=== PATIENT | female | born 1960 ===

== ENCOUNTER 2021-06-10 07:49 | Emergency (ER) | payer SELFPAY ==
[2021-06-10 09:04] LABS: Bilirubin,Urine NEG (Negative); Blood,Urine NEG (Negative); Color,Urine Yellow (Yellow); Protein,Urine <15 mg/dL mg/dL (Negative); Urobilinogen,Urine < 2.0 mg/dL (<2.0)
[2021-06-10] MEDS ORDERED: MORPHINE 4 MG/1 ML INJ IV ONE (09:08)
[2021-06-10] MEDS ORDERED: ONDANSETRON 4 MG/2 ML INJ IV ONE (09:08)
[2021-06-10] MEDS ORDERED: SODIUM CHLORIDE 0.9% 1000 ML 1,000 ML IV ONE (09:08)
--- NOTE | 2021-06-10 09:09 | Emergency Department Report ---
ED Abdominal Pain HPI - General Chief Complaint: Abdominal Pain Stated Complaint: abd pain Time Seen by Provider: 06/10/21 08:52 Source: patient Mode of arrival: Ambulatory Limitations: No Limitations - History of Present Illness Initial Comments: 61-year-old female with a past medical history of diabetes, hypertension, hyperlipidemia and peripheral neuropathy presents to the ER today with complaints of periumbilical/epigastric pain radiating around to her right back. Patient states that this pain has been ongoing for the past 2 weeks and getting worse. She describes his pain as a "spasmic pain. She denies any associated nausea, vomiting or diarrhea. Her last bowel movement was this morning and normal. She denies any UTI or abnormal vaginal symptoms. She denies any fever or chills. She denies any chest pain or shortness of breath. She is status post appendectomy. MD Complaint: abdominal pain -: week(s) (2) Severity scale (0 -10): 6 - Related Data Previous Rx's Medication Instructions Recorded Last Taken Type HYDROcodone/APAP 5-325 [Ramey 1 each PO Q4HR PRN #12 tablet 06/10/21 Unknown Rx 5/325] Allergies Allergy/AdvReac Type Severity Reaction Status Date / Time No Known Allergies Allergy Unverified 06/10/21 07:55 ED Review of Systems ROS: Stated complaint: abd pain Other details as noted in HPI Comment: All other systems reviewed and negative Constitutional: denies: chills, fever Eyes: denies: eye pain, eye discharge, vision change ENT: denies: ear pain, throat pain Respiratory: denies: cough, shortness of breath, wheezing Cardiovascular: denies: chest pain, palpitations, dyspnea on exertion, edema, syncope, paroxysmal nocturnal dyspnea, other Gastrointestinal: abdominal pain. denies: nausea, vomiting, diarrhea, constipation, hematemesis, melena, hematochezia Genitourinary: denies: urgency, dysuria, frequency, hematuria, discharge, abnormal menses, dyspareunia Musculoskeletal: denies: back pain, joint swelling, arthralgia Skin: denies: rash, lesions Neurological: denies: headache, weakness, numbness, paresthesias, confusion, abn ormal gait, vertigo Psychiatric: denies: anxiety, depression, auditory hallucinations, visual hallucinations, homicidal thoughts, suicidal thoughts Hematological/Lymphatic: denies: easy bleeding, easy bruising ED Past Medical Hx - Medications Home Medications: Home Medications Medication Instructions Recorded Confirmed Last Taken Type HYDROcodone/APAP 5-325 [Ramey 1 each PO Q4HR PRN #12 tablet 06/10/21 Unknown Rx 5/325] ED Physical Exam - General Limitations: No Limitations - Head Head exam: Present: atraumatic, normocephalic, normal inspection - Eye Eye exam: Present: normal appearance, PERRL, EOMI Pupils: Present: normal accommodation - ENT ENT exam: Present: normal exam, mucous membranes moist, TM's normal bilaterally - Neck Neck exam: Present: normal inspection, full ROM - Respiratory Respiratory exam: Present: normal lung sounds bilaterally. Absent: respiratory distress, wheezes, rales, rhonchi - Cardiovascular Cardiovascular Exam: Present: regular rate, normal rhythm, normal heart sounds - GI/Abdominal GI/Abdominal exam: Present: soft, distended, tenderness (Moderate epigastric and right upper quadrant tenderness with some mild guarding.), guarding. Absent: rebound, rigid - Back Exam Back exam: Present: normal inspection, full ROM, CVA tenderness (R) - Neurological Exam Neurological exam: Present: alert, oriented X3, CN II-XII intact, normal gait - Psychiatric Psychiatric exam: Present: normal affect, normal mood - Skin Skin exam: Present: intact ED Course Vital Signs 06/10/21 06/10/21 07:51 12:38 Temperature 98.4 F 97.5 F L Pulse Rate 77 64 Respiratory 18 16 Rate Blood Pressure 141/84 126/85 [Right] O2 Sat by Pulse 97 98 Oximetry ED Medical Decision Making - Lab Data Result diagrams: 06/10/21 09:14 06/10/21 09:14 - Radiology Data Radiology results: report reviewed Patient: CALISTA PEDERSON MR#: [id number] : 1960 Acct:[id number] Age/Sex: 61 / F ADM Date: 06/10/21 Loc: ED Attending Dr: Ordering Physician: RUSSELL ELLIS Date of Service: 06/10/21 Procedure(s): CT abdomen pelvis w con Accession Number(s): [id number] cc: RUSSELL ELLIS CT ABDOMEN AND PELVIS WITH CONTRAST INDICATION / CLINICAL INFORMATION: Omni 300 100cc. Upper abd pain into right back. TECHNIQUE: Axial CT images were obtained through the abdomen and pelvis after I V contrast. All CT scans at this location are performed using CT dose reduction for ALARA by means of automated exposure control. COMPARISON: None available. FINDINGS: LOWER CHEST: No significant abnormality. LIVER: No significant abnormality. GALLBLADDER: Possible gallstones or gallbladder sludge in the gallbladder neck. No acute abnormality. PANCREAS: No significant abnormality. SPLEEN: No significant abnormality. ADRENALS: No significant abnormality. RIGHT KIDNEY / URETER: No significant abnormality. LEFT KIDNEY / URETER: No significant abnormality. STOMACH / SMALL BOWEL: No significant abnormality. COLON: No significant abnormality. APPENDIX: Nonvisualized PERITONEUM: No free fluid, free air or organized collection. LYMPH NODES: No significant adenopathy. AORTA / ARTERIES/ VEINS: No significant abnormality. URINARY BLADDER: No significant abnormality. REPRODUCTIVE ORGANS: 4 cm fibroid within the left aspect of the uterine fundus. ADDITIONAL FINDINGS: None. SKELETAL SYSTEM: No significant abnormality. IMPRESSION: 1. No acute abnormality. 2. Possible gallbladder sludge without acute bladder abnormality. 3. 4 cm fibroid within the uterine fundus. Signer Name: Nikolas Lima MD Signed: 06/10/2021 10:39 AM Workstation Name: [id number] Transcribed By: SB Dictated By: NIKOLAS LIMA MD Electronically Authenticated By: NIKOLAS LIMA MD Signed Date/Time: 06/10/21 1039 DD/ 1036 TD/TT: Patient: CALISTA PEDERSON MR#: [id number] : 1960 Acct:[id number] Age/Sex: 61 / F ADM Date: 06/10/21 Loc: ED Attending Dr: Ordering Physician: RUSSELL ELLIS Date of Service: 06/10/21 Procedure(s): US abdomen limited Accession Number(s): [id number] cc: RUSSELL ELLIS ULTRASOUND ABDOMEN, LIMITED (RIGHT UPPER QUADRANT) INDICATION / CLINICAL INFORMATION: Right UQ pain. COMPARISON: None available. FINDINGS: PANCREAS: Visualized portion shows no significant abnormality. LIVER: There is increased echogenicity of the liver without focal lesion. Upper limits of normal liver size at 15.3 cm. PORTABLE VEIN: Normal hepatopedal flow. GALLBLADDER: Cholelithiasis. BILE DUCTS: No significant abnormality. Common bile duct measures 2 mm. FREE FLUID: None. ADDITIONAL FINDINGS: None. IMPRESSION: 1. Cholelithiasis without cholecystitis. 2. Hepatic steatosis. Signer Name: Amari Tang DO Signed: 06/10/2021 11:40 AM Workstation Name: [id number] Transcribed By: CHI Dictated By: AMARI TANG DO Electronically Authenticated By: AMARI TANG DO Signed Date/Time: 06/10/21 1140 DD/ 1139 TD/TT: - Medical Decision Making Patient reports feeling better after meds and IV fluids. She is currently not in any significant distress. She is not toxic or ill-appearing. She is neurologically intact with a normal gait. Labs reviewed--CBC and CMP unremarkable. Troponin normal. Lipase is normal. Urinalysis normal. CT abdomen pelvis with IV contrast showed possible gallbladder sludge and uterine fibroids. Gallbladder ultrasound shows cholelithiasis without cholecystitis. Discussed all results with patient. Discussed suspected diagnosis with patient. At this time there is no indication for surgical consult or admission to the hospital. Patient will be given referral information to general surgery for further outpatient evaluation and treatment of her gallstones. Food choices that impacted gallbladder were discussed with patient and her daughter. She will also be given gallbladder eating plan. Worsening signs and symptoms discussed with both patient and daughter, and they understand that if these symptoms develop to bring patient back immediately to the ER. Patient and daughter expressed understanding of all instructions and agree with plan. Patient was stable at time of discharge. Critical care attestation.: If time is entered above; I have spent that time in minutes in the direct care of this critically ill patient, excluding procedure time. ED Disposition Clinical Impression: Cholelithiasis Disposition: 01 HOME / SELF CARE / HOMELESS Is pt being admited?: No Does the pt Need Aspirin: No Condition: Stable Instructions: Cholelithiasis, [id number], Gallbladder Eating Plan, Abdominal Pain (ED) Additional Instructions: Take the pain medication as prescribed and as needed to help with any pain relief. I recommend that you follow the gallbladder eating plan to help with better food choices. I do recommend that you follow-up with the general surgeon listed on your discharge instructions for further evaluation and discuss an elective outpatient removal of your gallbladder. Return to the ER if at any point your pains worsens, with vomiting, and fever. Prescriptions: HYDROcodone/APAP 5-325 [Ramey 5/325] 1 each PO Q4HR PRN #12 tablet PRN Reason: Pain Referrals: REGINO AWAD MD [Staff Physician] - 3-5 Days Time of Disposition: 12:00
[2021-06-10 09:26] LABS: Basophils % (Auto) 0.5 % (0.0-1.8); Eosinophils # (Auto) 0.4 K/mm3 (0.0-0.4); Eosinophils % (Auto) 5.8 % (0.0-4.3); Hematocrit 40.2 % (30.3-42.9); Hemoglobin 13.5 gm/dl (10.1-14.3); Lymphocytes # (Auto) 1.7 K/mm3 (1.2-5.4); Lymphocytes % (Auto) 24.3 % (13.4-35.0); Mean Corpuscular HGB Conc 34 % (30-34); Mean Corpuscular Volume 94 fl (79-97); Monocytes # (Auto) 0.4 K/mm3 (0.0-0.8); Monocytes % (Auto) 5.9 % (0.0-7.3); Platelet Count 200 K/mm3 (140-440); Red Blood Count 4.26 M/mm3 (3.65-5.03); Red Cell Distribution Width 13.2 % (13.2-15.2)
[2021-06-10 09:46] LABS: Alanine Aminotransferase 22 units/L (7-56); Albumin 4.6 g/dL (3.9-5); Blood Urea Nitrogen 11 mg/dL (7-17); Calcium 9.8 mg/dL (8.4-10.2); Hemolysis Index 11
[2021-06-10 09:50] LABS: BUN/Creatinine Ratio 18; Bilirubin,Direct < 0.2 mg/dL (0-0.2)
--- NOTE | 2021-06-10 10:43 | Cat Scan Report ---
CT ABDOMEN AND PELVIS WITH CONTRAST INDICATION / CLINICAL INFORMATION: Omni 300 100cc. Upper abd pain into right back. TECHNIQUE: Axial CT images were obtained through the abdomen and pelvis after IV contrast. All CT sc ans at this location are performed using CT dose reduction for ALARA by means of automated exposure c ontrol. COMPARISON: None available. FINDINGS: LOWER CHEST: No significant abnormality. LIVER: No significant abnormality. GALLBLADDER: Possible gallstones or gallbladder sludge in the gallbladder neck. No acute abnormality. PANCREAS: No significant abnormality. SPLEEN: No significant abnormality. ADRENALS: No significant abnormality. RIGHT KIDNEY / URETER: No significant abnormality. LEFT KIDNEY / URETER: No significant abnormality. STOMACH / SMALL BOWEL: No significant abnormality. COLON: No significant abnormality. APPENDIX: Nonvisualized PERITONEUM: No free fluid, free air or organized collection. LYMPH NODES: No significant adenopathy. AORTA / ARTERIES/ VEINS: No significant abnormality. URINARY BLADDER: No significant abnormality. REPRODUCTIVE ORGANS: 4 cm fibroid within the left aspect of the uterine fundus. ADDITIONAL FINDINGS: None. SKELETAL SYSTEM: No significant abnormality. IMPRESSION: 1. No acute abnormality. 2. Possible gallbladder sludge without acute bladder abnormality. 3. 4 cm fibroid within the uterine fundus. Signer Name: Nikolas Lima MD Signed: 06/10/2021 10:39 AM Workstation Name: [id number]
--- NOTE | 2021-06-10 11:45 | Ultrasound Report ---
ULTRASOUND ABDOMEN, LIMITED (RIGHT UPPER QUADRANT) INDICATION / CLINICAL INFORMATION: Right UQ pain. COMPARISON: None available. FINDINGS: PANCREAS: Visualized portion shows no significant abnormality. LIVER: There is increased echogenicity of the liver without focal lesion. Upper limits of normal live r size at 15.3 cm. PORTABLE VEIN: Normal hepatopedal flow. GALLBLADDER: Cholelithiasis. BILE DUCTS: No significant abnormality. Common bile duct measures 2 mm. FREE FLUID: None. ADDITIONAL FINDINGS: None. IMPRESSION: 1. Cholelithiasis without cholecystitis. 2. Hepatic steatosis. Signer Name: Amari Herzog DO Signed: 06/10/2021 11:40 AM Workstation Name: [id number]
[2021-06-10 12:47] VITALS: BP 126/85
== END 2021-06-10 12:48 | disposition home or self-care (01) ==
LOC: ED 07:49
DX: K80.20 Calculus of gallbladder without cholecystitis without obstruction (principal)
CPT/HCPCS: 36415; 74177; 76705; 80048; 80076; 81001; 83690; 84484; 85025; 96361; 96374; 96375; 99284; J2270; J2405; J7030; Q9967; Q0162